=== PATIENT | male | born 1945 | race Caucasian/White ===

== ENCOUNTER 2021-11-01 12:36 | Outpatient (CLI) | payer MEDICARE, SELFPAY ==
--- NOTE | ~2021-11-01 | MR_ITS ---
EXAMINATION: MR knee LT wo con DATE: 11/01/2021 13:28 INDICATION: Left knee pain TECHNIQUE: Magnetic resonance imaging (MRI) of the knee was performed without intravenous contrast. S equences included axial PD-weighted FS FSE, coronal PD-weighted FSE and PD-weighted FS FSE, sagittal PD-weighted FSE, and sagittal T2-weighted FS FSE. COMPARISON: X-ray left knee 05/09/2021 FINDINGS: Medial compartment: Moderate diffuse thinning of cartilage and osteophytosis. Oblique tear of the posterior horn/body wit h extension to the inferior meniscal surface. Lateral compartment: Mild diffuse cartilage and osteophytosis. Vertically oriented tear of the anterior horn. Patellofemoral compartment: Extensor mechanism and retinacula are intact. Moderate diffuse thinning of cartilage and osteophytosi s. Ligaments and tendons: High signal and redundancy of tissue involving the anterior band of the ACL as it inserts on the tibi a, possibly with some degree of minimal arthrofibrosis. PCL, LCL are intact. MCL thickening as can be seen with chronic partial tear. Fluid: Small volume joint fluid present. Osseous/other: Subcortical cyst formation in the medial condyle. Early subchondral cysts versus reactive marrow luciano ge in the patellar medial facet and median ridge. IMPRESSION: 1. Oblique tear of the posterior horn and body, medial meniscus. 2. Vertical tear of the anterior horn, lateral meniscus. 3. Moderate tricompartmental osteoarthritic change. 4. 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 Reviewed, dictated and finalized at location K.
== END 2021-11-01 12:37 | disposition home or self-care (01) ==
PROVIDERS: Visit Provider Orthopaedic Surgery
DX: M17.12 Unilateral primary osteoarthritis, left knee (principal); S83.242A Other tear of medial meniscus, current injury, left knee, initial encounter; S83.282A Other tear of lateral meniscus, current injury, left knee, initial encounter; S83.412A Sprain of medial collateral ligament of left knee, initial encounter; S83.512A Sprain of anterior cruciate ligament of left knee, initial encounter; X58.XXXA Exposure to other specified factors, initial encounter
CPT/HCPCS: 73721

== ENCOUNTER 2022-01-06 10:31 | Outpatient (CLI) | payer MEDICARE, SELFPAY ==
--- NOTE | 2022-01-06 11:23 | ECG_ITS ---
Measurements Intervals [place] Rate: 51 P: -15 WI: 221 QRS: -17 QRSD: 102 T: 12 QT: 432 QTc: 400 Interpretive Statements SINUS BRADYCARDIA WITH FIRST DEGREE AV BLOCK VOLTAGE CRITERIA FOR LVH ABNORMAL ECG Electronically Signed On 01-06-2022 12:00:25 CDT by Ha Barber D.O.
== END 2022-01-06 10:32 | disposition home or self-care (01) ==
LOC: ANHSURGERY 10:37
PROVIDERS: Visit Provider Orthopaedic Surgery
DX: Z01.818 Encounter for other preprocedural examination (principal); I10 Essential (primary) hypertension; R94.31 Abnormal electrocardiogram [ECG] [EKG]
CPT/HCPCS: 93005

== ENCOUNTER 2022-01-12 00:30 | Day surgery (SDC) | payer MEDICARE, SELFPAY ==
[2022-01-06 10:39] VITALS: BP 156/80; PULSE 50; RESP 20; TEMP 36.4; O2SAT 99; BMI 30.4
--- NOTE | 2022-01-06 10:40 | PC.NURSE ---
Report to the Outpatient Waiting Room, entrance under the green pavilion located off [facility], at time _0600_ on date _01/12/22_. OR Time: _0730_. - You and your visitor will be asked a series of questions to screen for COVID 19 for your protection. - Only one visitor is allowed at this time. - The patient visitor is requested to leave or wait in car when not with patient. - A mask is required within the hospital. Patients may have clear liquids (water, carbonated beverages, clear teas, apple juice) until 3 hours prior to surgery (0430 AM) with a maximum of 20 ounces. - No food from midnight until time of surgery Take the following medications with a SIP of water the morning of surgery: _NONE_ Medications to discontinue per physician _NONE_, Date to take last dose Please no deodorant, or body powder the day of surgery. No jewelry (including any body piercings) or valuables the day of surgery, leave them at home. Please take a shower or bath the night before, or the morning of, surgery with an antibacterial soap. Wear comfortable, loose fitting clothing. - Jewelry must be removed prior to entering the operating room. Rings and piercings that are not removed may be cut off. - The hospital will not accept responsibility for valuables. - Please leave all valuables, including medications, at home the day of surgery. If you are going home after surgery, a licensed wagon driver must drive you home. - NO public transportation without another adult. - We recommend that an adult stay with you for 24 hours following discharge. - We also recommend that you do not drive, make important decision, drink alcoholic beverages, or take any drugs that were not prescribed by your health care provider for at least 24 hours after your discharge time. Follow any additional instructions given to you from your surgeon. If you or anyone in your household have experienced Covid symptoms in the past week, please notify your surgeon or the nurse liaison at the phone number below for possible testing. Instructions given to _PT & SPOUSE_and asked if any additional questions and then verbalized understanding. Patient advised to call surgeon office or pre surgery nurse liaison [phone] if any additional questions.
--- NOTE | 2022-01-09 16:01 | P.PNAN_ITS ---
Anes - Initial Pre Proc Eval Procedure: Operation Date: 01/12/22 07:30 Proposed Procedures p Left Knee Arthroscopy with Meniscectomy - Sharif Estrada MD Date/Time: 01/09/22 16:01 Surgeon: Sharif Estrada MD Pre Op Diagnosis: left knee meniscal tear Patient Data Age: 76 Gender: M Height: 1.88 m Weight: 107.8 kg Last Vital Signs Temp 36.4 C 01/06/22 10:39 Pulse 50 L 01/06/22 10:39 Resp 20 01/06/22 10:39 BP 156/80 H 01/06/22 10:39 Pulse Ox 99 01/06/22 10:39 O2 Del Method Room Air 01/06/22 10:39 Allergies Allergy/AdvReac Type Severity Reaction Status Date / Time No Known Allergies Allergy Verified 01/06/22 10:57 Home Medications Medication Instructions Recorded Confirmed Type finasteride 5 mg tablet 5 mg PO QAM 06/18/21 01/06/22 History tamsulosin 0.4 mg capsule 0.4 mg PO QAM 06/18/21 01/06/22 History lisinopril 20 1 tablet QAM 01/06/22 01/06/22 History mg-hydrochlorothiazide 12.5 mg tablet Patient hx anesthesia problems: none Family hx anesthesia problems: none Results Review: All pre-operative results and documents have been reviewed as part of the pre- operative evaluation. [facility] Past Medical History Medical History (Updated 01/09/22 @ 16:02 by David Arizmendi MD) Back pain HTN (hypertension) Left knee pain Obesity Prostate CA Tear of meniscus of left knee Surgical History Surgical History History of hernia surgery Family History Family History Other Family history of cancer Social History Social History Smoking packs per day: 2 Smoking cigarettes per day: 40.0 Years smoked: 5 Smoking pack-years: 10.00 Smoking status: Never smoker Tobacco type: cigarettes Second hand tobacco smoke exposure: No Smoking end date: 06/28/78 Alcohol intake: current Drinks per week: 20 Alcohol use details: BEERS Substance use: never Substance use type: does not use Living arrangements: with family Gender identity (if verbalized by the patient): Male Spiritual care concerns: Yes ( Sikh) Agree to blood products: No Anes - Eval Final PreProcedure Day of Procedure 01/09/22 16:01 Patient weight: obese Heart: regular rate and rhythm Lungs: clear to auscultation and normal air movement Airway: Mallampati scale class II Neurological: alert and oriented Last oral intake: >/= 8 hours ASA classification: III Emergent: no Anesthetic plan: proceed Anesthesia type and monitoring: general LMA Results Review: All pre-operative results and documents have been reviewed as part of the pre- operative evaluation. Informed Consent: The patient's anesthetic plan and its attendant risks and benefits were discussed with the patient/family/POA. Questions were solicited and answers provided to the satisfaction of the patient/family/POA.
[2022-01-12] MEDS: ACETAMINOPHEN 500 MG TABLET 1000 MG PO (07:00)
[2022-01-12] MEDS: KETOROLAC 15 MG/ML VIAL (*BKC) IV PUSH (07:00)
[2022-01-12 07:01] LABS: Anion Gap 6 mmol/L (8-16); Blood Urea Nitrogen 14 mg/dL (9-20); Calcium 8.6 mg/dL (8.4-10.2); Carbon Dioxide 28 mmol/L (22-30); Chloride 103 mmol/L (98-107); Estimated CRCL calculation 92 ml/min; Estimated Glomerular Filt Rate > 60; Glucose 101 mg/dL (65-110); Potassium 4.6 mmol/L (3.4-5.0); Sodium 137 mmol/L (137-145)
[2022-01-12 07:10] VITALS: BP 155/78; PULSE 57; RESP 14; TEMP 36.2; O2SAT 100
[2022-01-12] MEDS: LACTATED RINGERS 1,000 ML 30 ML IV CONT (07:22)
--- NOTE | 2022-01-12 07:27 | WPDHPUPDATE1 ---
History and Physical Update Update Date/Time: 01/12/22 07:27 History and Physical has been reviewed, including an updated exam of the patient. Since I last saw the patient in the office he developed a paronychia and has some purulence coming from his left second toe. The arthroscopy the left knee will be put on hold and instead is going to have the nail removed, the toe cleaned up and will be put on antibiotics. Procedure will be left second toenail removal, proceed as indicated. This was reviewed in detail with the patient and his this morning. Risks, benefits, and alternatives have been discussed and questions answered. Patient agrees to proceed with procedure.
[2022-01-12] MEDS: ceFAZolin 2 GM/D5W 50 ML 2 GM/50 ML BAG IVPB (07:35)
[2022-01-12] MEDS: LIDOCAINE HCL 1% PF 30 ML VIAL INFILTRATE (08:00)
[2022-01-12 08:08] VITALS: BP 143/80; PULSE 56; RESP 12; O2SAT 98
[2022-01-12 08:30] VITALS: BP 160/83; PULSE 43; RESP 12; O2SAT 98
--- NOTE | 2022-01-12 08:31 | W.PM.PROC2 ---
Procedure Note - Detailed Date of Procedure 01/12/22 Pre-op Diagnosis <del>left</del> <del>knee</del> <del>meniscal</del> <del>tear</del> Paronychia left second toe Post-op Diagnosis Same Procedure Performed Left second toe nail removal Surgeon Sharif Estrada MD Anesthesia MAC and Local Description of Procedure Patient was identified and proper site identified. He was taken to the operating him transferring to the OR table placed him supine taking care to pad his torso extremities. Left lower extremity was prepped and draped in usual sterile fashion. Several cc 1% lidocaine plain lidocaine was infiltrated around the base of the second toe creating a field block. Using a [place] elevator, the toenail was able to be elevated off the nail bed removed without difficulty. The majority of the purulence was underneath the toenail over the nail bed. The nail bed was irrigated with sterile saline. Triple antibiotic what was placed over the nail bed along with Xeroform and sterile gauze dressing. Patient tolerated the procedure well. He was taken back to recovery in stable condition. There were no known intraoperative complications. Estimated blood loss was negligible. He received perioperative antibiotics. Estimated Blood Loss 1 Drains No Packing No Pathology None sent Complications No immediate complications Condition Stable Disposition PACU
[2022-01-12 09:00] VITALS: BP 161/77; PULSE 42; RESP 12
[2022-01-12 09:15] VITALS: BP 154/74; PULSE 41; RESP 12
== END 2022-01-12 09:35 | disposition home or self-care (01) ==
PROVIDERS: Anesthesiology; Visit Provider Orthopaedic Surgery
PROC: (CPT 29870; principal; 2022-01-12 07:30)
DX: L03.032 Cellulitis of left toe (principal); I10 Essential (primary) hypertension; Z85.46 Personal history of malignant neoplasm of prostate; E66.9 Obesity, unspecified; Z68.30 Body mass index [BMI] 30.0-30.9, adult; Z87.891 Personal history of nicotine dependence
CPT/HCPCS: 11730; 36415; 80048; A9270; J0690; J1885; J2250; J2704; J3010; J7120

== ENCOUNTER 2022-07-13 00:14 | Day surgery (SDC) | payer MEDICARE, SELFPAY ==
[2022-07-09 10:21] VITALS: BMI 30.2
--- NOTE | 2022-07-09 10:31 | PC.NURSE ---
Report to the Outpatient Waiting Room, entrance under the green pavilion located off [facility], at time ___1130____ on date __07/13/22 . Planned Procedure Time: __1:30 PM . Time changes happen often and if your time is changed the preop area will call you the afternoon before. - You and your visitor will be asked to self-screen and do not enter if you have any COVID symptoms. - Only one visitor is requested with a max of two and NO children visitors are allowed at this time. - The patient visitor may be requested to leave or wait in car when not with patient due to distancing restrictions. - A mask is optional within the hospital. Patients may have clear liquids (water, carbonated beverages, clear teas, apple juice) until 3 hours prior to surgery (1030 AM) with a maximum of 20 ounces. - No food from midnight until time of surgery - Infants may have breast milk until 4 hours before surgery, formula 6 hours prior to surgery. - Children will be allowed to drink immediately following surgery. If applicable, please bring a bottle or sippy cup to assist with drinking. Juice, water, soda, and popsicles are readily available. For infants on formula, please bring formula the day of surgery. Pacifiers are allowed. Take the following medications with a SIP of water the morning of surgery: NONE Medications to discontinue per physician NONE Date to take last dose Please no make-up, nail azeri, hairspray, perfume, deodorant, or body powder the day of surgery. No jewelry (including any body piercings) or valuables the day of surgery, leave them at home. Please take a shower or bath the night before, or the morning of, surgery with an antibacterial soap. Wear comfortable, loose fitting clothing. Children are encouraged to wear pajamas. - Jewelry must be removed prior to entering the operating room. Rings and piercings that are not removed may be cut off. - The hospital will not accept responsibility for valuables. - Please leave all valuables, including medications, at home the day of surgery. If you are going home after surgery, a licensed cement mixer driver must drive you home. - NO public transportation without another adult if you receive anesthesia. - We recommend that an adult stay with you for 24 hours following discharge. - We also recommend that you do not drive, make important decision, drink alcoholic beverages, or take any drugs that were not prescribed by your health care provider for at least 24 hours after your discharge time. For Pediatric surgeries, we recommend two adults accompany the child home. Follow any additional instructions given to you from your surgeon. If you or anyone in your household have experienced Covid symptoms in the past week, please notify your surgeon or the nurse liaison at the phone number below for possible testing. Telephone instructions given to ____PATIENT and asked if any additional questions and then verbalized understanding. Patient advised to call surgeon office or pre surgery nurse liaison [phone] if any additional questions.
[2022-07-13] VITALS (9 sets, daily range): BP systolic 147–190; BP diastolic 75–92; PULSE 52–67; RESP 12–16; TEMP 36.2–36.4; O2SAT 99–100
[2022-07-13] MEDS: ACETAMINOPHEN 500 MG TABLET 1000 MG PO (10:53)
[2022-07-13] MEDS: KETOROLAC 15 MG/ML VIAL (*BKC) IV PUSH (10:55)
[2022-07-13 11:39] LABS: Anion Gap 3 mmol/L (8-16); Blood Urea Nitrogen 14 mg/dL (9-20); Calcium 8.1 mg/dL (8.4-10.2); Carbon Dioxide 28 mmol/L (22-30); Chloride 100 mmol/L (98-107); Estimated CRCL calculation 105 ml/min; Estimated Glomerular Filt Rate > 60; Glucose 99 mg/dL (65-110); Potassium 4.1 mmol/L (3.4-5.0); Sodium 131 mmol/L (137-145)
--- NOTE | 2022-07-13 11:39 | WPDANESEPPF ---
Anes - Initial Pre Proc Eval Procedure: Operation Date: 07/13/22 12:30 Proposed Procedures p Left Knee Arthroscopy with Meniscectomy - Sharif Estrada MD Date/Time: 07/13/22 11:39 Surgeon: Sharif Estrada MD Pre Op Diagnosis: left knee medial meniscal tear Patient Data Age: 76 Gender: M Height: 1.88 m Weight: 109.8 kg Last Vital Signs Temp 36.4 C 07/13/22 10:35 Pulse 58 L 07/13/22 10:35 Resp 16 07/13/22 10:35 BP 147/75 H 07/13/22 10:35 Pulse Ox 99 07/13/22 10:35 O2 Del Method Room Air 07/13/22 10:35 Allergies Allergy/AdvReac Type Severity Reaction Status Date / Time No Known Allergies Allergy Verified 07/13/22 10:22 Home Medications Medication Instructions Recorded Confirmed Type finasteride 5 mg tablet 5 mg PO QAM 06/18/21 07/13/22 History tamsulosin 0.4 mg capsule 0.4 mg PO QAM 06/18/21 07/13/22 History lisinopril 20 1 tablet QAM 01/06/22 07/13/22 History mg-hydrochlorothiazide 12.5 mg tablet Laboratory Tests 07/13/22 11:21 Sodium Pending Potassium Pending Chloride Pending Carbon Dioxide Pending Anion Gap Pending BUN Pending Creatinine Pending Estim Creat Clear Calc Pending Estimated GFR Pending Glucose Pending Calcium Pending Patient hx anesthesia problems: none Family hx anesthesia problems: none Results Review: All pre-operative results and documents have been reviewed as part of the pre-operative evaluation. [facility] Past Medical History Medical History Back pain HTN (hypertension) Infection of left foot Left second toenail bed Left knee pain Obesity Prostate CA Tear of meniscus of left knee Surgical History Surgical History History of hernia surgery Family History Family History Other Family history of cancer Social History Social History Smoking packs per day: 2 Smoking cigarettes per day: 40.0 Years smoked: 5 Smoking pack-years: 10.00 Smoking status: Former smoker Tobacco type: cigarettes Second hand tobacco smoke exposure: No Smoking end date: 06/28/78 Alcohol intake: current Drinks per week: 15 Alcohol use details: BEERS Substance use: never Substance use type: does not use Living arrangements: with family Gender identity (if verbalized by the patient): Male Spiritual care concerns: Yes Agree to blood products: No Anes - Eval Final PreProcedure Day of Procedure 07/13/22 11:39 Patient weight: obese Heart: regular rate and rhythm Lungs: clear to auscultation Airway: Mallampati scale class II Neurological: alert and oriented Last oral intake: >/= 8 hours ASA classification: III Emergent: no Anesthetic plan: proceed Anesthesia type and monitoring: general LMA and standard monitoring Results Review: All pre-operative results and documents have been reviewed as part of the pre-operative evaluation. Informed Consent: The patient's anesthetic plan and its attendant risks and benefits were discussed with the patient/family/POA. Questions were solicited and answers provided to the satisfaction of the patient/family/POA.
[2022-07-13] MEDS: LACTATED RINGERS 1,000 ML 30 ML IV CONT ×2 (11:55→13:32)
--- NOTE | 2022-07-13 11:55 | WPDHPUPDATE1 ---
History and Physical Update Update Date/Time: 07/13/22 11:55 History and Physical has been reviewed, including an updated exam of the patient. There are NO changes in the patient's condition. Risks, benefits, and alternatives have been discussed and questions answered. Patient agrees to proceed with procedure.
[2022-07-13] MEDS: ceFAZolin 2 GM/D5W 50 ML 2 GM/50 ML BAG IVPB (12:22)
[2022-07-13] MEDS: LIDOCAINE 1% BUFFERED WITH 8.4% SODIUM BICARB 1 ML SYRINGE 10 ML INFILTRATE (13:18)
--- NOTE | 2022-07-13 13:34 | P.OP_ITS ---
Procedure Note - Detailed Date of Procedure 07/13/22 Pre-op Diagnosis left knee medial meniscal tear Post-op Diagnosis Other ( left knee medial and lateral meniscal tear) Procedure Performed left knee arthroscopy, partial medial and lateral meniscectomy. Surgeon Sharif Estrada MD Anesthesia General Description of Procedure The patient was identified and proper site identified and He was taken to the operating room, transferred to the OR table placing him supine taking care to pad the torso and extremities. After general anesthetic induction and intubation, a nonsterile tourniquet was placed high on the left thigh but was not inflated. The left lower extremity was positioned, prepped and draped in usual sterile fashion. 10 cc of 1% lidocaine was injected into the subcutaneous tissue in the area of the portals at start of the procedure, and an additional 10 at the end. The portals were established and the arthroscopy was carried out. 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 None of the fragments were loose. Articular cartilage in all three compartments showed grade 2 and three changes. There is evidence of an old tear the anterior horn of the lateral meniscus. The remaining portion of meniscus was contoured back to a more stable rim. Medially there was complex tearing of the meniscus posterior horn well into the midbody with an extruded fragment out into the medial gutter. This was contoured back with basket forceps and a shaver as well. Arthrocare Wand was used for intra- articular hemostasis. The knee was flushed with a copious amount of arthroscopic fluid and equipment was removed. Portals were closed with three O nylon suture and a sterile dressing was applied. He tolerated the procedure well, was awakened, extubated and taken to recovery area in stable condition. There were no known intraoperative complications. Estimated blood loss was negligible; he received perioperative antibiotics. Estimated Blood Loss 20 Tourniquet Time 0 Drains No Packing No Pathology None sent Complications No immediate complications Condition Stable AM Billing Surgery - Charge Forward: Surgery Billing ([id number])
[2022-07-13] MEDS: oxyCODONE HCL (*CRX) 5 MG TAB IR PO (14:50)
--- NOTE | 2022-07-13 14:57 | SUR.PHASEII ---
Dr. Farmer aware of patient's BP. He said for patient to go home and resume normal BP meds. No additional medications at this time.
--- NOTE | 2022-07-13 16:32 | SUR.PHASEII ---
After getting dressed and into wheelchair patient stated, My knee feels better than it did.
== END 2022-07-13 16:02 | disposition home or self-care (01) ==
PROVIDERS: Anesthesiology; Visit Provider Orthopaedic Surgery
PROC: (CPT 29870; principal; 2022-07-13 12:30)
DX: M23.322 Other meniscus derangements, posterior horn of medial meniscus, left knee (principal); M23.342 Other meniscus derangements, anterior horn of lateral meniscus, left knee; M65.862 Other synovitis and tenosynovitis, left lower leg; M22.42 Chondromalacia patellae, left knee; I10 Essential (primary) hypertension; Z85.46 Personal history of malignant neoplasm of prostate; E66.9 Obesity, unspecified; Z68.31 Body mass index [BMI] 31.0-31.9, adult
CPT/HCPCS: 29880; 36415; 80048; A9270; J0690; J1100; J1170; J1885; J2405; J2704; J3010; J7120